=== PATIENT | female | born 1965 | race Caucasian/White ===

== ENCOUNTER → 2024-09-16 10:26 | Outpatient (REF) | payer OTHER, SELFPAY | LOC: RAD 10:26 | PROVIDERS: ATTENDING PHYSICIAN Physician Assistant; FAMILY PHYSICIAN Internal Medicine | DX: M25.511 Pain in right shoulder (principal) | CPT/HCPCS: 76881 ==

== ENCOUNTER 2024-10-22 06:30 | Day surgery (SDC) | payer OTHER, SELFPAY ==
[2024-10-09 11:17] LABS: Hematocrit 40.2 % (37.0-47.0); Hemoglobin 13.2 g/dL (12.0-16.0); Mean Corp Hgb Conc. 32.8 g/dL (33.0-37.0); Mean Corpuscular Volume 90.7 fL (81.0-99.0); Nucleated Red Blood Cells % 0 %; Platelet Count 63 10^3/uL (130-400); Red Cell Dist. Width 14.5 % (11.5-14.5)
[2024-10-09 11:50] LABS: Blood Urea Nitrogen 23 mg/dl (7-17); Calcium 9.7 mg/dl (8.4-10.2); Carbon Dioxide 28 mmol/L (22-30); Chloride 109 mmol/L (98-107); Glucose 87 mg/dl (70-99); Potassium 4.7 mmol/L (3.5-5.1); Sodium 143 mmol/L (135-145); eGFR > 60.00
[2024-10-09 14:09] VITALS: BMI 38.8
[2024-10-22] VITALS (10 sets, daily range): BP systolic 130–173; BP diastolic 69–95; BMI 38.8
[2024-10-22] MEDS: TYLENOL 1000 MG PO (07:48)
[2024-10-22] MEDS: MOBIC 15 MG PO (07:48)
[2024-10-22] MEDS: NORMOSOL-R/PLASMALYTE-A 1000 IV (07:56)
[2024-10-22] MEDS: DILAUDID 0.25 MG IV (11:12)
== END 2024-10-22 13:05 | disposition home or self-care (01) ==
LOC: SDS 06:30
PROVIDERS: ATTENDING PHYSICIAN Orthopaedic Surgery; FAMILY PHYSICIAN Internal Medicine
DX: M75.121 Complete rotator cuff tear or rupture of right shoulder, not specified as traumatic (principal); M25.811 Other specified joint disorders, right shoulder; M19.011 Primary osteoarthritis, right shoulder
CPT/HCPCS: 29827; 29828; 36415; 80048; 85025; 93005